=== PATIENT | female | born 1995 | race American Indian/Alaskan Native ===

== ENCOUNTER 2021-03-17 09:22 | Outpatient (CLI) | payer MEDICAID | END 2021-03-17 13:22 | disposition home or self-care (01) | LOC: LAB 09:22 → APU 13:10 → LAB 13:22 | PROVIDERS: ATTEND Obstetrics & Gynecology | DX: O26.893 Other specified pregnancy related conditions, third trimester (principal); Z67.41 Type O blood, Rh negative; Z3A.30 30 weeks gestation of pregnancy | CPT/HCPCS: 86850; 86900; 86901; 96372; J2790 ==